=== PATIENT | female | born 1945 | race Caucasian/White ===

== ENCOUNTER 2019-10-23 19:34 | Emergency (ER) | payer MEDICARE, MEDICAID, SELFPAY ==
[2019-10-23 19:39] VITALS: BP 109/74; PULSE 88; RESP 18; TEMP 36.3; O2SAT 94
--- NOTE | 2019-10-23 19:52 | W.ED.GENAD ---
Discharge Plan Disposition Patient Disposition: [facility] Condition: Fair Discharge Details Chief Complaint: GenMedical Clinical Impression: UTI (urinary tract infection), AMS (altered mental status) Primary Care Provider: Diana,Local ED Provider: Candida Irwin [place] Meds and New Rx's Prescriptions: No Action quetiapine 25 mg Tablet 25 mg PO HS RF: 0 famotidine 20 mg Tablet 20 mg PO BID RF: 0 lorazepam 0.5 mg Tablet 0.5 mg PO PRN PRNRF: 0 levetiracetam 750 mg Tablet 750 mg PO BID RF: 0 lisinopril 40 mg Tablet 40 mg PO DAILY RF: 0 Discharge Data Discharge Date/Time-TO BE ENTERED AT DEPARTURE: 10/24/19 00:25 Medical Decision Making Patient is a pleasant 72 year old female, brought in by her daughter, with concern for difficulty with ambulation and poor cognition. Daughter reports that the patient had been residing in [place]. Is from the [facility] of [place], family currently resides here. However, patient moved to [place] approximately 20 years ago. 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 Deficit after intervention was generalized weakness, difficulty with ambulation and cognitive decline. Daughter reports that her mother has been very confused since the ruptured aneurysm. [facility] where he was working with physical therapy, speech therapy was having cognitive therapy. She reports however that over the past week her mothers participation in his activities has began to decline. For this reason, she reports the penitentiary dismissed the patient and advised that she was no longer eligible to stay at their facility. They are unable to place the patient in a penitentiary and the daughter felt that it would be more appropriate for her today back to [place] with her family. The daughter then subsequently drove to [place], picked her up and brought her back. She reports they arrived around 2 AM today. Patient has not been able to ambulate, has been in a wheelchair. She had to have a neighbors picket [employer] the patient in her wheelchair and care here into the house. 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 On exam, patient is pleasantly confused. Lungs are clear, normal cardiac exam. She is moving all extremities with purpose, strength is equal bilaterally in the lower and upper extremities. Normal cranial nerve findings. Patient is having difficulty following instructions but this seems to be a more cognitive delay and again, the daughter reports that this is been chronic since the ruptured brain aneurysm. Abdomen is benign. No lower extremity edema. History is limited secondary to patient's current cognitive state. Vital signs are without significant abnormality. New concern for possible UTI. Will obtain labs and urinalysis. Will hold off on IV at this time as I am concerned that she may remove this. Our CT machine is down at this time. However, I do not find any new or acute, sudden onset symptoms and have very low suspicion for rebleed at this time. Do not feel that emergent imaging is warranted in this patient. Labs reviewed. Patient's nitrate positive, has elevated WBC, packed bacteria and few epithelial cells. I am concerned for possible urosepsis. We will begin IV, hydration and IV antibiotics. Labs reviewed. No leukocytosis. Patient slightly anemic with a hemoglobin of 11.4. Potassium is 3.0, will replenish this orally. Creatinine is elevated 1.3 but I do not have any comparisons. GFR is 48. AST is slightly elevated at 53. TSH within normal limits. Nursing staff attempted to ambulate the patient and was unable to do so even with a two-person assist. I do not feel that this patient is safe to be discharged and feel that further antibiotics, physical therapy is appropriate. Reached out to [facility], [facility], [facility], [facility]. All have refused as of now. Many are concerned that there is no CT. We did discuss that there is no CT available at this time. I have very minimal concern for intracranial etiology at this time. Consulted with the ED at [facility]. Spoke with Dr Clay who accepts patient to their ED for CT and likely subsequent admission. Discussed plan with the patients daughter who is in agreement. Patient transferred via EMS in stable condition to [facility]. HPI General Mode of arrival: wheelchair. Date/Time Provider Initiated Documentation: 10/23/19 19:52. Limitations to Documentation: altered mental status. Information obtained by: family and RN notes reviewed. History of Present Illness 73 year old F presents to the emergency department with the chief complaint of increased confusion, difficulty with ambulation, described as moderate, Patient started experiencing this month(s) and it has been constant (worsening over recent days/weeks). No relieving factors improve symptom(s), No exacerbating factors reported . Patient notes confusion (has been baseline since aneurysm with increase recently) and weakness; denies cough, headaches, malaise, nausea/vomiting, rash, shortness of breath and syncope. Patient did receive the following treatments prior to arrival, none Related Data Home Medications Medication Instructions Recorded Confirmed famotidine 20 mg PO BID 10/23/19 10/23/19 levetiracetam 750 mg PO BID 10/23/19 10/23/19 lisinopril 40 mg PO DAILY 10/23/19 10/23/19 lorazepam 0.5 mg PO PRN PRN 10/23/19 10/23/19 quetiapine 25 mg PO HS 10/23/19 10/23/19 Allergies Allergy/AdvReac Type Severity Reaction Status Date / Time propranolol [From Inderal LA] Allergy Unverified 10/23/19 19:51 General Stated Complaint: GenMedical HADLEY: 3 Review of Systems Unobtainable due to mental condition [facility] Medical History (Updated 10/23/19 @ 23:59 by MOHAN Xavier) Anxiety (Chronic) Cognitive communication deficit (Acute) COPD (chronic obstructive pulmonary disease) (Chronic) Hypertensive heart disease without heart failure (Acute) 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 (Acute) Seizure (Acute) Social History Smoking/Tobacco Use Status: Former Tobacco Use Alcohol Intake: former Drug use: Never Additional Social history: pt has confusion and has just been moved via car from [place] Exam Const General: comfortable, no acute distress, well developed and well groomed Nutritional Appearance: overweight Orientation: alert, awake, not oriented x3 and confused Limitations: altered mental status [facility] Head: normal to inspection, no palpable skull fracture, normocephalic and atraumatic Ears: hearing grossly normal bilaterally Face and sinus: normal facial exam Mouth: oral mucosae normal Throat: posterior oropharynx normal Eyes General: appearance normal, both eyes and all related structures Neck Neck: normal visual inspection, full ROM, no lymphadenopathy and no meningeal signs Resp Effort & Inspection: normal respiratory effort and able to speak in complete sentences Auscultation: clear to auscultation bilaterally, no rales, no rhonchi and no wheezes Cardio Rate: regular rate Rhythm: regular rhythm Heart Sounds: S1 normal and S2 normal GI Inspection: normal to inspection and obesity Palpation: soft, no hepatosplenomegaly, not firm, no guarding, not rigid and nontender Percussion: normal to percussion Auscultation: normal bowel sounds Skin General skin exam: no rashes or lesions noted Lesions: no lesions Rashes: no rashes Trauma: no lacerations or abrasions Wounds: no wounds Neuro General: alert, awake, not oriented x3, oriented Patient Orientation: Person, gait abnormal (Patient is unable to ambulate), tone normal, moves all extremities, no meningeal signs, no focal motor deficits and CN's II-XI intact bilaterally Cranial Nerves: PERRL, accommodation normal, EOM intact bilaterally, no nystagmus, facial strength normal, tongue midline, gag reflex normal, hearing normal, able to rotate head bilaterally and able to elevate shoulders bilaterally Cognition: abnormal cognition Speech: speech normal (patient is confused, slurred speech ) Gait: gait abnormal Motor: muscle tone normal throughout, strength 5/5 throughout, no movement abnormalities noted and no fasciculations Extrem General: normal to inspection, full ROM, normal capillary refill, no pedal edema, no calf tenderness and no calf tenderness bilaterally Right upper extremity: normal to inspection Left upper extremity: normal to inspection Right lower extremity: normal to inspection Left lower extremity: normal to inspection Psych Appearance: grossly normal and well kempt Speech and Movement: slurred speech Course Vital Signs Vital signs: Vital Signs Temperature 36.3 C L 10/23/19 19:39 Pulse 88 10/23/19 19:39 Respiratory Rate 18 10/23/19 19:39 Blood Pressure 109/74 10/23/19 19:39 Pulse Oximetry 94 L 10/23/19 19:39 Temperature 36.3 C L 10/23/19 19:39 Temperature Source Temporal Artery Scan 10/23/19 19:39 Pulse 88 10/23/19 19:39 Respiratory Rate 18 10/23/19 19:39 Respiratory Effort 10/23/19 19:46 Blood Pressure 109/74 10/23/19 19:39 Blood Pressure Position Supine 10/23/19 19:39 Pulse Oximetry 94 L 10/23/19 19:39 Oxygen Delivery Method Room Air 10/23/19 19:39 Oxygen Flow Rate 0 10/23/19 19:39
[2019-10-23 20:38] LABS: HCT 35.2 % (36.0-46.0); HGB 11.4 g/dL (12.0-15.5); Mean Corp. HGB Concentration 32.4 g/dL (32.0-36.0); Mean Corpuscular Hemoglobin 30.5 pg (27.0-33.0); Mean Corpuscular Volume 94.1 fL (80-95); Mean Platelet Volume 10.7 fL (8.0-11.0); Platelet Count 350 x1000/uL (130-400); RBC 3.74 m/cumm (4.00-5.20); RBC Distribution Width 13.7 % (11.7-14.6); White Blood Cell Count 8.67 k/cumm (4.4-10.8)
[2019-10-23 20:49] LABS: Bilirubin Small (Negative); Blood Trace-intact (Negative); Clarity Cloudy (Clear); Glucose Negative (Negative); Ketones Trace mg/dL (Negative); Leukocyte Esterase Negative (Negative); Nitrite Positive (Negative); Specific Gravity >= 1.030 (1.005-1.025); Urobilinogen 0.2 EU/dL (Up TO 0.2); pH 5.5 (5-8)
[2019-10-23 20:57] LABS: Bacteria Packed HPF (Negative); C & S Indicated? Yes; Crystals Negative HPF (Negative); Epithelial Cells Few HPF (Negative); Mucus Negative (Negative); RBC 0-2 HPF (0-2); WBC 20-50 HPF (0-5)
[2019-10-23 21:02] LABS: Absolute Eosinophil Count 0.26 k/cumm (0.0-0.7); Absolute Lymphocyte Count 2.95 k/cumm (1.2-3.4); Absolute Monocyte Count 0.61 k/cumm (0.11-0.7); Absolute Neutrophil Count 4.77 k/cumm (1.2-6.7)
[2019-10-23 21:03] LABS: ALT 42 U/L (14-59); AST 53 U/L (15-37); Absolute Basophil Count 0.09 k/cumm (0.0-0.2); Albumin 3.4 g/dL (3.4-5.0); Alkaline Phosphatase 91 U/L (46-116); Anion Gap 10.9 mmol/L (3-11); BUN 18 mg/dL (7-18); Bilirubin, Total 0.4 mg/dL (0.2-1.0); CO2 27.1 mmol/L (21.0-32.0); Calcium 8.6 mg/dL (8.5-10.1); Chloride 105 mmol/L (98-107); Diff Comment Manual Differential; Estimated GFR 40.49 (mL/min/1.73m2); Glucose 102 mg/dL (74-106); Hypochromasia 1+; Sodium 143 mmol/L (136-145); TSH (W/Ref FT4) 2.52 uIU/mL (0.36-3.74); Total Protein 6.9 g/dL (6.4-8.2)
[2019-10-23] MEDS: Normal Saline 1,000 ML 250 ML IV (21:30)
[2019-10-23] MEDS: cefTRIAXone 1 GM/50 ML BAG IVPB (21:45)
[2019-10-23 21:59] LABS: Lactate 1.1 mmol/L (0.6-1.4)
[2019-10-23 22:11] VITALS: PULSE 82; TEMP 36.4; O2SAT 92
--- NOTE | 2019-10-23 22:16 | NUR.NOTE ---
pt is restless adjusting her covers . she has attempted to remove her IV Nursing Note:
--- NOTE | 2019-10-23 22:43 | NUR.NOTE ---
pt was given her own evening meds from her blister pack Nursing Note:
[2019-10-23] MEDS: Potassium Chloride 20 MEQ TABCR 40 MEQ PO (22:50)
[2019-10-23] MEDS: Ondansetron 4 MG/2 ML VIAL IVP (22:51)
--- NOTE | 2019-10-23 23:41 | NUR.NOTE ---
pt has continued to be restless in her bed. she was assisted to the commode with assist of two. she voided 80 cc. returned to bed .Nursing Note:
[2019-10-24 00:03] VITALS: BP 115/67; PULSE 100; RESP 20; TEMP 36.5; O2SAT 95
--- NOTE | 2019-10-27 11:00 | NUR.NOTE ---
Nursing Note: Urine culture result printed this am. After speaking with patient's daughter, her last name is actually Sobeida Glynn that we have in the computer. Daughter states she will address this. Patient is no longer at [facility], but at [facility]. The result was faxed to that facility and Os[facility] is aware. Tracey Lassiter
== END 2019-10-24 00:25 | disposition short-term general hospital (02) ==
PROVIDERS: Emergency Provider Physician Assistant
DX: R41.82 Altered mental status, unspecified (principal); N39.0 Urinary tract infection, site not specified; B96.1 Klebsiella pneumoniae [K. pneumoniae] as the cause of diseases classified elsewhere; I60.4 Nontraumatic subarachnoid hemorrhage from basilar artery; E11.9 Type 2 diabetes mellitus without complications; I10 Essential (primary) hypertension; J44.9 Chronic obstructive pulmonary disease, unspecified; Z87.891 Personal history of nicotine dependence; R79.9 Abnormal finding of blood chemistry, unspecified
CPT/HCPCS: 36415; 80053; 87040; 87077; 96365; 96375; 99285; 81003; 81015; 83605; 84443; 85025; 87086; 87186; J0696; J2405

== ENCOUNTER 2019-12-02 09:36 | Outpatient (REF) | payer MEDICARE, SELFPAY ==
[2019-12-02 11:43] LABS: ALT 17 U/L (14-59); AST 25 U/L (15-37); Albumin 2.4 g/dL (3.4-5.0); Alkaline Phosphatase 114 U/L (46-116); Anion Gap 8.2 mmol/L (3-11); BUN 20 mg/dL (7-18); Bilirubin, Total 0.4 mg/dL (0.2-1.0); CO2 30.8 mmol/L (21.0-32.0); CREATININE 0.78 mg/dL (0.55-1.02); Calcium 8.4 mg/dL (8.5-10.1); Chloride 103 mmol/L (98-107); Glucose 86 mg/dL (74-106); Potassium 3.7 mmol/L (3.5-5.1); Sodium 142 mmol/L (136-145); Total Protein 5.8 g/dL (6.4-8.2); Vitamin B12 1138 pg/mL (193-986)
== END 2019-12-02 09:56 ==
LOC: LBN 09:36
PROVIDERS: PCP Family Medicine; Visit Provider Family Medicine
DX: K14.0 Glossitis (principal)
CPT/HCPCS: 80053; 82607; 82746

== ENCOUNTER 2020-01-12 07:59 | Emergency (ER) | payer MEDICARE, MEDICAID, SELFPAY ==
[2020-01-12] VITALS (35 sets, daily range): BP systolic 120–156; BP diastolic 59–139; PULSE 60–88; RESP 6–24; TEMP 37.1; O2SAT 97–99
--- NOTE | 2020-01-12 08:21 | W.ED.GENAD ---
Discharge Plan Disposition Patient Disposition: SNF (LEVEL 1) [facility] Condition: Good Discharge Details Chief Complaint: GenMedical Clinical Impression: Nausea & vomiting, Hypokalemia Primary Care Provider: Leonela Waddell ED Provider: Candida Irwin [place] Meds and New Rx's Prescriptions: New potassium chloride 20 mEq tablet extended release 20 meq PO DAILY Qty: 7 RF: 0 Continued acetaminophen [Tylenol] 325 mg tablet 325 mg PO ONCE PRNRF: 0 quetiapine 25 mg Tablet 25 mg PO HS RF: 0 famotidine 20 mg Tablet 20 mg PO BID RF: 0 lorazepam 0.5 mg Tablet 0.5 mg PO PRN PRNRF: 0 levetiracetam 750 mg Tablet 750 mg PO BID RF: 0 lisinopril 40 mg Tablet 40 mg PO DAILY RF: 0 acetaminophen [Tylenol Arthritis Pain] 650 mg Tablet Extended Release 650 mg PO DAILY RF: 0 ferrous sulfate [iron] 325 mg (65 mg iron) Tablet 325 mg PO DAILY RF: 0 valproate sodium 500 mg/5 mL (100 mg/mL) Solution 250 mg PO DAILY RF: 0 ibuprofen 200 mg Tablet 200 mg PO Q6H PRNRF: 0 folic acid 1 mg Tablet 1 mg PO DAILY RF: 0 mirtazapine 15 mg Tablet 15 mg PO QHS RF: 0 albuterol sulfate [Ventolin HFA] 90 mcg/actuation Hfa Aerosol Inhaler 90 mcg INHALATION PRN PRNRF: 0 duloxetine [Cymbalta] 60 mg Capsule,Delayed Release(Dr/Ec) 30 mg PO DAILY RF: 0 Discharge Instructions Instructions: Hypokalemia (ED), Acute Nausea and Vomiting (ED) Additional Instructions: Continue to encourage hydration. Potassium was low today. She was given 20 IV and 10 p.o. Please give another dosing this evening, prescription has been written. She will need to have this reassessed by primary care. Urine is concerning for possible urinary tract infection. However, with the recent catheter placement this could also be contamination and we will wait for the culture results before beginning antibiotics. Around the area of catheter there is a prolapse. Patient may benefit from pessary. She should have this reassessed by primary care and reconsideration regarding the catheter should be discussed. Patient develops new or worsening symptoms please seek care urgently once again. Referrals: Leonela Waddell [Primary Care Provider] - Discharge Data Discharge Date/Time-TO BE ENTERED AT DEPARTURE: 01/12/20 13:20 Medical Decision Making <MOHAN Xavier - Last Filed: 01/13/20 15:29> Patient is a pleasantly confused 74-year-old female presenting today with chief complaint of constipation. Patient sent over by the [facility] with report of constipation x2 days. They state that she has had diminished p.o. intake over the past week that is been progressively getting worse daily. Patient is endorsing abdominal pain. No fevers or chills. They state most vomiting x1 yesterday. Past medical history significant for hypertension, cognitive communication deficit, COPD, nontraumatic subarachnoid hemorrhage, seizure, anxiety, type 2 diabetes. Patient's baseline confusion does make it difficult to obtain history. Her story oscillates rapidly while here. Plan to call the [facility] for more accurate information. She did have On exam, the patient appears nontoxic. She is ANO x1. She is vital signs within normal limits. Normal cardiac and respiratory exam. Abdominal exam is benign. She does intermittently endorse abdominal pain but does not have any reproducible pain on exam. No CVA tenderness. Normal rectal exam was soft stool noted. A small amount of blood in her diaper. However, this does not appear to be coming from the rectum and had a guaiac negative stool. However, around the catheter the patient does have a small prolapse. She has had multiple children vaginally. Likely she would benefit from pessary. This small area is able to be reduced. She has pink viable tissue. This is nontender for the patient. I do not see any evidence of vaginal bleeding. Contacted the [facility]. They advised that the patient vomited x 1 yesterday. She reports poor intake over the past several days that has progressively been worsening. Had small BM yesterday, prior to that last BM was on 12/29/19 but patient is poor historian and if there were BM between is unknp[place]. Nursing staff states that a catheter was placed last night for more close monitoring of I&O status. Nursing staff states that this is been progressive decline. Provider at the [facility] was concerned the patient may have an obstruction due to decreased stooling and vomiting x1 yesterday. Contacted by the lab. Patients potassium 2.9. Will replenish IV and PO. Labs reviewed. No leukocytosis. BUN 21, creatinine and GFR normal. UA significant for blood, small leukocytes esterdase, moderate bacteria, few epithelial cells. FINDINGS: Mediastinum: Small hiatal hernia Liver: Normal. No mass. Gallbladder and bile ducts: Distended gallbladder Pancreas: Normal. No ductal dilation. Spleen: Normal. No splenomegaly. Adrenals: Normal. No mass. Kidneys and ureters: Subcentimeter low attenuation areas in both kidneys are too small for characterization. Duplicated right renal collecting system No renal calculus. No ureteral calculus. Stomach and bowel: Unremarkable. No obstruction. No mucosal thickening. Appendix: Normal appendix Intraperitoneal space: Unremarkable. No free air. No significant fluid collection. Vasculature: Unremarkable. No abdominal aortic aneurysm. Lymph nodes: Unremarkable. No enlarged lymph nodes. Bladder: Gonzales catheter in the bladder Reproductive: Unremarkable as visualized. Bones/joints: Compression fracture of unknown age L1 and T10 Soft tissues: Unremarkable. IMPRESSION: No acute process discussed these findings with the patient although is unclear how much she will remember from this. She tolerated IV and p.o. potassium. She will be advised to continue with the p.o. potassium once home. She has not had any nausea, vomiting, diarrhea since being here. Exam on CT as well as physical exam does not suggest severe constipation. I feel that stool softening regimen would be appropriate and can be managed at her place of residence at the [facility]. At this point, the findings on the UA could be contamination from the catheter being placed yesterday. Rather than place her immediately on antibiotics, I would prefer to hold off and wait for culture and sensitivity prior to getting medications. We will contact them with any positive results. Advise follow-up with primary care and reevaluation of the patient's prolapse. She was given return precautions. Contact the [facility] to relay plan. All of their questions and concerns were addressed patient and the [facility] are in agreement this plan. <Ronak Fisher MD - Last Filed: 01/12/20 09:50> Patient seen, examined, discussed, with Ms. Irwin. I agree with her assessment and plan of care. HPI <MOHAN Xavier - Last Filed: 01/13/20 15:29> General Mode of arrival: EMS. Date/Time Provider Initiated Documentation: 01/12/20 08:19. Limitations to Documentation: altered mental status. Information obtained by: patient, RN/MD (contacted by RN at [facility] prior to arrival) and EMS. HPI Narrative: Patient is a 74-year-old pleasantly confused female came in today with chief complaint of constipation. Patient is quite confused and is a unreliable historian. Per detention staff, patient has been constipated for the past several days. She reports small bowel movement yesterday but prior to that, no bowel movement since 12/29/2019. However, there is a questioning if this may not have been recorded and are unclear if this is true constipation. Provider at the [facility] is concern for possible obstruction and recommended transfer to our facility for further evaluation. They report that over recent days, she has had decreased p.o. intake. They are concerned some of this may be associated with depression and not being able to see her family associate with pandemic. Related Data Home Medications Medication Instructions Recorded Confirmed famotidine 20 mg PO BID 10/23/19 01/12/20 levetiracetam 750 mg PO BID 10/23/19 10/23/19 lisinopril 40 mg PO DAILY 10/23/19 01/12/20 lorazepam 0.5 mg PO PRN PRN 10/23/19 10/23/19 quetiapine 25 mg PO HS 10/23/19 10/23/19 acetaminophen 325 mg tablet 325 mg PO ONCE PRN 01/02/20 acetaminophen [Tylenol Arthritis 650 mg PO DAILY 01/12/20 01/12/20 Pain] albuterol sulfate [Ventolin HFA] 90 mcg INHALATION PRN PRN 01/12/20 01/12/20 duloxetine [Cymbalta] 30 mg PO DAILY 01/12/20 01/12/20 ferrous sulfate [iron] 325 mg PO DAILY 01/12/20 01/12/20 folic acid 1 mg PO DAILY 01/12/20 01/12/20 ibuprofen 200 mg PO Q6H PRN 01/12/20 01/12/20 mirtazapine 15 mg PO QHS 01/12/20 01/12/20 potassium chloride 20 meq PO DAILY #7 tab 01/12/20 valproate sodium 250 mg PO DAILY 01/12/20 01/12/20 Previous Rx's Medication Instructions Recorded potassium chloride 20 meq PO DAILY #7 tab 01/12/20 Allergies Allergy/AdvReac Type Severity Reaction Status Date / Time propranolol [From Inderal LA] Allergy Unverified 11/01/19 14:16 General Stated Complaint: GenMedical HADLEY: 3 Review of Systems <MOHAN Xavier - Last Filed: 01/13/20 15:29> Unobtainable due to mental status PFSH <MOHAN Xavier - Last Filed: 01/13/20 15:29> Medical History (Updated 01/12/20 @ 12:34 by MOHAN Xavier) Aneurysm (Acute) Anxiety (Chronic) Cognitive communication deficit (Acute) COPD (chronic obstructive pulmonary disease) (Chronic) Hypertensive heart disease without heart failure (Acute) 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 (Acute) Seizure (Acute) Surgical History (Updated 01/02/20 @ 08:42 by Shelby Mares) H/O neck surgery (Acute) History of ankle surgery (Acute) Social History (System 11/01/19 @ 14:16 by Rizwana Marquez) Smoking/Tobacco Use Status: Former Tobacco Use Alcohol Intake: former Drug use: Never Additional Social history: pt has confusion and has just been moved via car from [place] Exam <MOHAN Xavier - Last Filed: 01/13/20 15:29> Const General: cooperative, comfortable, no acute distress, well developed and ill appearing chronically Nutritional Appearance: average body habitus and well nourished Orientation: alert, awake and confused HENMT Head: normal to inspection Mouth: mucous membranes dry (appears dehydrated) Resp Effort & Inspection: normal respiratory effort, able to speak in complete sentences and no respiratory distress Auscultation: clear to auscultation bilaterally, no rales, no rhonchi and no wheezes Cardio Rate: regular rate Rhythm: regular rhythm Heart Sounds: S1 normal and S2 normal GI Inspection: normal to inspection, no edema, non-distended and no incisions Palpation: soft, no hepatosplenomegaly, not firm, no guarding, no hernias, no masses, not rigid and nontender Percussion: normal to percussion Auscultation: absent bowel sounds Rectal Exam - female: visual inspection normal and heme negative stool Back/Spine/Pelvis Back: no CVA tenderness Skin General skin exam: no rashes or lesions noted Trauma: no lacerations or abrasions Neuro General: patient alert, patient awake and oriented Patient Orientation: Person and Confused Cognition: abnormal cognition Speech: speech normal Gait: normal gait (needs assistance, sounds to be baseline for the patient) Psych Appearance: grossly normal and well kempt Mental Status: mental status grossly normal Speech and Movement: speech and movement normal Course <MOHAN Xavier - Last Filed: 01/13/20 15:29> Vital Signs Vital signs: Vital Signs Temperature 37.1 C 01/12/20 08:14 Pulse 88 01/12/20 08:14 Respiratory Rate 18 01/12/20 08:14 Blood Pressure 132/84 01/12/20 08:14 Pulse Oximetry 99 01/12/20 08:14 Temperature 37.1 C 01/12/20 08:14 Temperature Source Oral 01/12/20 08:14 Pulse 88 01/12/20 08:14 Respiratory Rate 18 01/12/20 08:14 Blood Pressure 132/84 01/12/20 08:14 Blood Pressure Position Supine 01/12/20 08:14 Pulse Oximetry 99 01/12/20 08:14 Oxygen Delivery Method Room Air 01/12/20 08:14 Oxygen Flow Rate 0 01/12/20 08:14
[2020-01-12 09:25] LABS: Abs Immature Grans 0.03 k/cumm (0.0-0.09); Absolute Basophil Count 0.03 k/cumm (0.0-0.2); Absolute Eosinophil Count 0.04 k/cumm (0.0-0.7); Absolute Lymphocyte Count 1.82 k/cumm (1.2-3.4); Absolute Monocyte Count 0.81 k/cumm (0.11-0.7); Absolute Neutrophil Count 5.08 k/cumm (1.2-6.7); Basophils % 0.4; Eosinophils % 0.5; HCT 36.7 % (36.0-46.0); Immature Grans % 0.4 %; Lymphocytes % 23.3; Mean Corp. HGB Concentration 32.7 g/dL (32.0-36.0); Mean Corpuscular Hemoglobin 29.7 pg (27.0-33.0); Mean Corpuscular Volume 90.8 fL (80-95); Mean Platelet Volume 10.6 fL (8.0-11.0); Monocytes % 10.4; Platelet Count 346 x1000/uL (130-400); RBC 4.04 m/cumm (4.00-5.20); RBC Distribution Width 15.2 % (11.7-14.6); White Blood Cell Count 7.81 k/cumm (4.4-10.8)
[2020-01-12] MEDS: Normal Saline 1,000 ML 500 ML IV (09:43)
[2020-01-12 09:47] LABS: ALT 16 U/L (14-59); AST 22 U/L (15-37); Albumin 3.1 g/dL (3.4-5.0); Alkaline Phosphatase 79 U/L (46-116); Anion Gap 7.1 mmol/L (3-11); BUN 21 mg/dL (7-18); Bilirubin, Total 0.6 mg/dL (0.2-1.0); CO2 32.9 mmol/L (21.0-32.0); CREATININE 0.65 mg/dL (0.55-1.02); Calcium 9.5 mg/dL (8.5-10.1); Chloride 98 mmol/L (98-107); Glucose 107 mg/dL (74-106); Magnesium 1.6 mg/dL (1.8-2.4); Sodium 138 mmol/L (136-145); Total Protein 7.6 g/dL (6.4-8.2)
[2020-01-12 09:48] LABS: Potassium 2.9 mmol/L (3.5-5.1); Troponin I < 0.05 ng/Ml (<0.06)
[2020-01-12] MEDS: POTASSIUM CHLORIDE 20 MEQ/100 ML BAG 50 MEQ IVPB (10:07)
--- NOTE | 2020-01-12 10:15 | DI.CT_ITS ---
EXAM: CT ABDOMEN PELVIS W CLINICAL HISTORY: constipation. TECHNIQUE: Imaging Protocol: Axial computed tomography images with coronal and sagittal reformatted images were created and reviewed CONTRAST MATERIAL: Intravenous: Omnipaque 350 Contrast volume:100 cc Oral: yes / COMPARISON: No exams were available for comparison FINDINGS: ABDOMEN: Lung Bases: Normal where visualized. Liver: Mild fatty infiltration. No measurable mass. Gallbladder and biliary tract: No radiodense calculus or dilation. Pancreas: Normal density, no abnormal calcifications or inflammatory process. Spleen: Normal. Kidneys: Normal size, duplex right collecting system. No radiodense stones or obstructive uropathy. No masses seen. Adrenal glands: No masses seen. Abdominal Aorta: Abdominal portion non-dilated. Heavily calcified. PELVIS: Bladder: Decompressed by Gonzales catheter. Bowel: No obstruction or bowel wall thickening. There is a moderate quantity of stool. Peritoneal cavity: No ascites, collection or mesenteric inflammatory response. Bones: There are mild compression fractures of the superior endplates T10 and L1. Facet degenerative changes are seen greatest at the lower lumbar levels. There is L5 spondylolysis but no evidence of spondylolisthesis. Reproductive organs: Within normal limits. Lymph nodes: Unremarkable. Impression: No acute abnormality. RADIATION DOSE DELIVERED: 749.94mGy.cm Total DLP DATA REPOSITORY: All CT scans at this facility are submitted to the National Radiology Data Registry (NRDR) Dose Index Registry (DIR) with the [employer] (ACR). RADIATION OPTIMIZATION: All CT scans at this facility use at least one of these dose optimization te chniques: automated exposure control; mA and/or kV adjustment per patient size (includes targeted exa ms where dose is matched to clinical indication); or iterative reconstruction.
[2020-01-12 10:19] LABS: Bilirubin Large (Negative); Blood Large (Negative); Clarity Sl Cloudy (Clear); Glucose Negative (Negative); Ketones 40 mg/dL (Negative); Leukocyte Esterase Small (Negative); Nitrite Negative (Negative); Specific Gravity 1.025 (1.005-1.025); pH 6.5 (5-8)
[2020-01-12] MEDS: Normal Saline - Diluent 50 ML VIAL IV (10:24)
[2020-01-12] MEDS: Omnipaque 350 MG/ML 100 ML BTL IJ (10:24)
[2020-01-12 10:35] LABS: Bacteria Moderate HPF (Negative); Epithelial Cells Few HPF (Negative); RBC >50 HPF (0-2)
[2020-01-12 10:36] LABS: C & S Indicated? Yes; Casts Negative LPF (Negative); Crystals Negative HPF (Negative); Mucus Trace (Negative)
--- NOTE | 2020-01-12 10:58 | DI.VRAD_ITS ---
PROCEDURE INFORMATION: Exam: CT Abdomen And Pelvis With Contrast Exam date and time: 01/12/2020 10:18 AM Age: 74 years old Clinical indication: Constipation TECHNIQUE: Imaging protocol: Computed tomography of the abdomen and pelvis with intravenous contrast. COMPARISON: No relevant prior studies available. FINDINGS: Mediastinum: Small hiatal hernia Liver: Normal. No mass. Gallbladder and bile ducts: Distended gallbladder Pancreas: Normal. No ductal dilation. Spleen: Normal. No splenomegaly. Adrenals: Normal. No mass. Kidneys and ureters: Subcentimeter low attenuation areas in both kidneys are too small for characterization. Duplicated right renal collecting system No renal calculus. No ureteral calculus. Stomach and bowel: Unremarkable. No obstruction. No mucosal thickening. Appendix: Normal appendix Intraperitoneal space: Unremarkable. No free air. No significant fluid collection. Vasculature: Unremarkable. No abdominal aortic aneurysm. Lymph nodes: Unremarkable. No enlarged lymph nodes. Bladder: Gonzales catheter in the bladder Reproductive: Unremarkable as visualized. Bones/joints: Compression fracture of unknown age L1 and T10 Soft tissues: Unremarkable. IMPRESSION: No acute process Dictated and Authenticated by: Nell Garcia MD. Ordering:ELYSIA Tirado MD
[2020-01-12] MEDS: Potassium Chloride 10 MEQ TABCR PO (11:58)
== END 2020-01-12 13:20 | disposition skilled nursing facility (03) ==
PROVIDERS: Emergency Provider Physician Assistant; PCP Family Medicine
DX: E87.6 Hypokalemia (principal); R11.2 Nausea with vomiting, unspecified; E11.9 Type 2 diabetes mellitus without complications; J44.9 Chronic obstructive pulmonary disease, unspecified; Z87.891 Personal history of nicotine dependence
CPT/HCPCS: 36415; 80053; 96361; 96365; 96366; 99285; 74177; 81003; 81015; 83735; 84484; 85025; 87086; J3480; J3490

== ENCOUNTER 2020-01-14 15:59 | Emergency (ER) | payer MEDICARE, MEDICAID, SELFPAY ==
[2020-01-14] VITALS (24 sets, daily range): BP systolic 109–171; BP diastolic 56–88; PULSE 80–104; RESP 16–18; TEMP 36.6; O2SAT 93–98
--- NOTE | 2020-01-14 16:00 | DI.US_ITS ---
EXAM: US ABDOMEN LIMITED CLINICAL HISTORY: upper abd pain, vomiting, r/o cholecystitis TECHNIQUE: Ultrasound performed using standard protocol. The right upper quadrant was scanned. COMPARISON: CT CT ABDOMEN PELVIS W from 01/12/2020 FINDINGS: Mobile sludge is noted within the gallbladder. No stones are seen. There is no gallbladder wall th ickening, pericholecystic fluid or sonographic Lozano sign. The common bile duct measures 7 millimet ers. No common duct stone is seen. The aorta is normal in diameter. The liver shows increased ech ogenicity consistent with mild fatty infiltration. The right kidney is unremarkable. The visualized portions of the pancreas appear normal. There is no right upper quadrant fluid. IMPRESSION: Gallbladder sludge. No findings cysts suggest acute cholecystitis. [id number] hepatic steat osis. DATA REPOSITORY:
--- NOTE | 2020-01-14 16:13 | W.ED.GENAD ---
Discharge Plan Disposition Patient Disposition: HOME Condition: Stable Discharge Details Chief Complaint: GenMedical Clinical Impression: Anorexia, Nausea and vomiting Primary Care Provider: Leonela Waddell ED Provider: Ivelisse Mendez Home Meds and New Rx's Prescriptions: New ondansetron 4 mg tablet,disintegrating 4 mg PO TID PRN (Reason: nausea and vomiting) Qty: 6 RF: 0 Continued famotidine 20 mg Tablet 20 mg PO BID RF: 0 lisinopril 40 mg Tablet 40 mg PO DAILY RF: 0 acetaminophen [Tylenol Arthritis Pain] 650 mg Tablet Extended Release 650 mg PO TID RF: 0 ferrous sulfate [iron] 325 mg (65 mg iron) Tablet 325 mg PO BID RF: 0 valproate sodium 500 mg/5 mL (100 mg/mL) Solution 250 mg PO TID RF: 0 ibuprofen 200 mg Tablet 200 mg PO Q6H PRNRF: 0 folic acid 1 mg Tablet 1 mg PO DAILY RF: 0 mirtazapine 15 mg Tablet 15 mg PO QHS RF: 0 albuterol sulfate [Ventolin HFA] 90 mcg/actuation Hfa Aerosol Inhaler 90 mcg INHALATION PRN PRNRF: 0 duloxetine [Cymbalta] 60 mg Capsule,Delayed Release(Dr/Ec) 30 mg PO BID RF: 0 potassium chloride 20 mEq tablet extended release 20 meq PO DAILY Qty: 7 RF: 0 beclomethasone dipropionate 80 mcg/actuation Hfa Aerosol Breath Activated 1 inh INHALATION DAILY RF: 0 ondansetron HCl [Zofran] 4 mg Tablet 4 mg PO Q8H PRNRF: 0 docusate sodium 100 mg Capsule 100 mg PO BID RF: 0 polyethylene glycol 3350 [Miralax] 17 gram/dose Powder 17 g PO DAILY RF: 0 senna 8.6 mg Capsule 8.6 mg PO BID RF: 0 Biofreeze (menthol) 4 % Gel 1 applic TOPICAL QD-BID PRNRF: 0 Salonpas 3.1-10-6 % Adhesive Patch,Medicated 1 patch TOPICAL DAILY RF: 0 Health Shake 1 unit PO BID RF: 0 Discharge Instructions Instructions: Acute Nausea and Vomiting (ED) Additional Instructions: Limit ibuprofen intake as this may be contributing to chronic nausea and decreased appetite. Follow-up with general surgery for further evaluation of your chronic nausea and decreased appetite and for consideration of possible upper endoscopy to rule out gastritis or ulcers. Also consider possibility of depressed mood which can contribute to decreased appetite and whether a change in antidepressant medication can help. Follow-up with your primary care doctor in 2 days. Return to the emergency department with any worsening or new concerning symptoms. Referrals: Danna Elaine MD [ [facility] STAFF PHYSICIAN] - Discharge Data Discharge Date/Time-TO BE ENTERED AT DEPARTURE: 01/14/20 20:20 Discharge Physician: Ivelisse Mendez Medical Decision Making 6930 -- 74-year-old female with a history of dementia, anxiety, COPD, hypertension presents from the [facility] for nausea, vomiting, diarrhea and decreased p.o. intake over the last several weeks. Seen here over the weekend for similar symptoms and had a negative CT scan and noted to have a potassium of 2.9 and advised to increase potassium intake and was sent back to the [facility]. Dr. Esparza called the ED today stating that patient likely needs to be admitted for IV fluids and possible gallbladder ultrasound. Patient appears at mental status baseline, she is A and O x1. Heart rate 104. She appears nontoxic and in no acute distress. Her abdomen is soft and she denies any abdominal pain but she is tender in the upper quadrants. Will place an IV, screening labs, urinalysis, IV fluids, Zofran, Pepcid and GI cocktail and refer for gallbladder ultrasound. 1830 -- Labs and imaging reviewed. Normal white blood cell count. Potassium 3.2. Magnesium 1.5. Troponin negative. Lipase normal. Gallbladder ultrasound noted sludge but no evidence of acute cholecystitis. 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 A small amount of urine was obtained and sent for culture. Will hold on treatment for UTI at this time as she has no fever, elevated white blood cell count or complaint of urinary symptoms. Patient was able to drink fluids and eat crackers and tomato soup here. As her decreased appetite has been chronic and she does not appear to be acutely dehydrated, and she has had no acute findings on lab work and imaging, do not see an acute indication for admission. She likely would benefit from further evaluation into possible depression as the cause, also possible endoscopy for chronic nausea and decreased appetite. Case discussed with patient's daughter who felt that patient was possibly depressed. Case d/w Dr. Esparza and she agrees that pt is likely depressed since brought from [place] by her daughter and refusing to eat since then. She is planning on a psychological evaluation and will also look into possible endoscopy. Medical Records Medical records reviewed: Yes I reviewed the patient's medical records. Imaging Data Radiologic Study: Radiologist's impression: US Abdomen Limited, Right Upper Quadrant Exam date and time: 01/14/2020 4:51 PM Age: 74 years old Clinical indication: Other: Ruq pain; Patient HX: N/v/d TECHNIQUE: Imaging protocol: Real-time ultrasound of the abdomen with image documentation. Examination was focused on the right upper quadrant. COMPARISON: CT ABDOMEN PELVIS W 01/12/2020 10:25 AM FINDINGS: There is a large amount of echogenic sludge in the gallbladder. No shadowing gallstones. No gallbladder wall thickening or pericholecystic fluid.There was no sonographic Lozano's sign according to the director of transportation. The common bile duct is top limits of normal in diameter. No common duct stones are visualized. The liver is unremarkable. The pancreas is unremarkable as visualized. No hydronephrosis of the right kidney. The abdominal aorta is normal in caliber. IMPRESSION: Gallbladder sludge. No evidence of acute cholecystitis. Lab Data Lab results reviewed: Yes I reviewed the patient's lab results. Labs: 01/14/20 17:11 Urine - Cath Not Specified Urine Culture - Pending Laboratory Tests Range/Units 01/14/20 01/14/20 01/14/20 17:00 17:00 17:00 WBC (4.4-10.8) k/cumm 5.23 RBC (4.00-5.20) m/cumm 4.06 Hgb (12.0-15.5) g/dL 11.8 L Hct (36.0-46.0) % 36.5 MCV (80-95) fL 89.9 MCH (27.0-33.0) pg 29.1 MCHC (32.0-36.0) g/dL 32.3 RDW (11.7-14.6) % 15.4 H Plt Count (130-400) x1000/uL 330 MPV (8.0-11.0) fL 11.0 Immature Gran % % 0.8 Neutrophils % 73.2 Lymphocytes % 19.3 Monocytes % 6.3 Eosinophils % 0.2 Basophils % 0.2 Absolute Neutrophils (1.2-6.7) k/cumm 3.83 Absolute Lymphocytes (1.2-3.4) k/cumm 1.01 L Absolute Monocytes (0.11-0.7) k/cumm 0.33 Absolute Eosinophils (0.0-0.7) k/cumm 0.01 Absolute Basophils (0.0-0.2) k/cumm 0.01 Sodium (136-145) mmol/L 137 Potassium (3.5-5.1) mmol/L 3.2 L Chloride (98-107) mmol/L 99 Carbon Dioxide (21.0-32.0) mmol/L 27.6 Anion Gap (3-11) mmol/L 10.4 BUN (7-18) mg/dL 17 Creatinine (0.55-1.02) mg/dL 0.74 Estimated GFR/1.73 m2 (mL/min/1.73m2) >= 60.00 Glucose (74-106) mg/dL 119 H Calcium (8.5-10.1) mg/dL 9.2 Magnesium (1.8-2.4) mg/dL 1.5 L Total Bilirubin (0.2-1.0) mg/dL 0.6 AST (15-37) U/L 23 ALT (14-59) U/L 17 Alkaline Phosphatase (46-116) U/L 80 Troponin I (<0.06) ng/Ml < 0.05 Total Protein (6.4-8.2) g/dL 7.5 Albumin (3.4-5.0) g/dL 3.0 L Lipase (73-393) U/L 339 Urine Color Urine Clarity Urine pH Ur Specific [place] Urine Protein Urine Ketones Urine Blood Urine Nitrite Urine Bilirubin Urine Urobilinogen Ur Leukocyte Esterase Urine Glucose Range/Units 01/14/20 17:11 WBC (4.4-10.8) k/cumm RBC (4.00-5.20) m/cumm Hgb (12.0-15.5) g/dL Hct (36.0-46.0) % MCV (80-95) fL MCH (27.0-33.0) pg MCHC (32.0-36.0) g/dL RDW (11.7-14.6) % Plt Count (130-400) x1000/uL MPV (8.0-11.0) fL Immature Gran % % Neutrophils % Lymphocytes % Monocytes % Eosinophils % Basophils % Absolute Neutrophils (1.2-6.7) k/cumm Absolute Lymphocytes (1.2-3.4) k/cumm Absolute Monocytes (0.11-0.7) k/cumm Absolute Eosinophils (0.0-0.7) k/cumm Absolute Basophils (0.0-0.2) k/cumm Sodium (136-145) mmol/L Potassium (3.5-5.1) mmol/L Chloride (98-107) mmol/L Carbon Dioxide (21.0-32.0) mmol/L Anion Gap (3-11) mmol/L BUN (7-18) mg/dL Creatinine (0.55-1.02) mg/dL Estimated GFR/1.73 m2 (mL/min/1.73m2) Glucose (74-106) mg/dL Calcium (8.5-10.1) mg/dL Magnesium (1.8-2.4) mg/dL Total Bilirubin (0.2-1.0) mg/dL AST (15-37) U/L ALT (14-59) U/L Alkaline Phosphatase (46-116) U/L Troponin I (<0.06) ng/Ml Total Protein (6.4-8.2) g/dL Albumin (3.4-5.0) g/dL Lipase (73-393) U/L Urine Color Cancelled Urine Clarity Cancelled Urine pH Cancelled Ur Specific [place] Cancelled Urine Protein Cancelled Urine Ketones Cancelled Urine Blood Cancelled Urine Nitrite Cancelled Urine Bilirubin Cancelled Urine Urobilinogen Cancelled Ur Leukocyte Esterase Cancelled Urine Glucose Cancelled ECG Data Attestation: I personally reviewed and interpreted this ECG (s) as follows: Interpretation: rate of 90, sinus, no acute st elevation or depression. T wave inversion V2-V4. [place] 156. QTc 458. QRS 88. HPI General Mode of arrival: EMS. Date/Time Provider Initiated Documentation: 01/14/20 16:55. Limitations to Documentation: altered mental status. Information obtained by: patient and RN/MD. HPI Narrative: Patient is a 74-year-old female with a history of dementia, seizures, anxiety, hypertension who presents for vomiting, diarrhea and inability to take p.o. past several weeks. Patient was seen here a few days ago for the same complaint and found to have low potassium but symptoms improved and she was sent back to the [facility]. Dr. Esparza called from the [facility] stating that patient likely needs to be admitted as she is not taking any p.o. and likely needs IV fluids. She also stated that patient was noted to have a distended gallbladder on her CT scan from a few days ago and that she may need a gallbladder ultrasound. Patient has denied any abdominal pain on recent visit and today. Patient is able to state that her main complaint is the nausea. She vomited once here which was bile. She has had watery brown diarrhea. She denies any known fever, chest pain or shortness of breath. Related Data Home Medications Medication Instructions Recorded Confirmed famotidine 20 mg PO BID 10/23/19 01/14/20 lisinopril 40 mg PO DAILY 10/23/19 01/14/20 acetaminophen [Tylenol Arthritis 650 mg PO TID 01/12/20 01/14/20 Pain] albuterol sulfate [Ventolin HFA] 90 mcg INHALATION PRN PRN 01/12/20 01/14/20 duloxetine [Cymbalta] 30 mg PO BID 01/12/20 01/14/20 ferrous sulfate [iron] 325 mg PO BID 01/12/20 01/14/20 folic acid 1 mg PO DAILY 01/12/20 01/14/20 ibuprofen 200 mg PO Q6H PRN 01/12/20 01/14/20 mirtazapine 15 mg PO QHS 01/12/20 01/14/20 potassium chloride 20 meq PO DAILY #7 tab 01/12/20 01/14/20 valproate sodium 250 mg PO TID 01/12/20 01/14/20 Biofreeze (menthol) 1 applic TOPICAL QD-BID PRN 01/14/20 01/14/20 Health Shake 1 unit PO BID 01/14/20 Salonpas 1 patch TOPICAL DAILY 01/14/20 01/14/20 beclomethasone dipropionate 1 inh INHALATION DAILY 01/14/20 01/14/20 docusate sodium 100 mg PO BID 01/14/20 01/14/20 ondansetron 4 mg PO TID PRN #6 tab 01/14/20 ondansetron HCl [Zofran] 4 mg PO Q8H PRN 01/14/20 01/14/20 polyethylene glycol 3350 [Miralax] 17 g PO DAILY 01/14/20 01/14/20 senna 8.6 mg PO BID 01/14/20 01/14/20 Previous Rx's Medication Instructions Recorded potassium chloride 20 meq PO DAILY #7 tab 01/12/20 ondansetron 4 mg PO TID PRN #6 tab 01/14/20 Allergies Allergy/AdvReac Type Severity Reaction Status Date / Time propranolol [From Inderal LA] Allergy Unverified 11/01/19 14:16 General Stated Complaint: GenMedical HADLEY: 3 Review of Systems All systems reviewed & are unremarkable except as noted in HPI and below Constitutional Constitutional: Reports as per HPI, Denies chills and Denies fever(s) Eyes Eyes: Denies blurry vision ENT Ears, Nose, Mouth, and Throat: Denies dizziness, Denies sore throat and Denies throat swelling Cardiovascular Cardiovascular: Denies chest pain and Denies dyspnea Respiratory Respiratory: Denies cough and Denies dyspnea Gastrointestinal Gastrointestinal: Denies abdominal pain, Reports diarrhea and Reports vomiting Genitourinary Genitourinary: Denies hematuria and Denies dysuria Musculoskeletal Musculoskeletal: Denies back pain and Denies numbness Integumentary/Breasts Skin/Breast: Denies lesions and Denies rash Neurologic Neurologic: Denies dizziness, Denies localized weakness and Denies numbness Allergic/Immunologic Allergic/Immunologic: Denies throat swelling [facility] Medical History (Updated 01/14/20 @ 19:39 by Ivelisse Mendez DO) Aneurysm (Acute) Anxiety (Chronic) Cognitive communication deficit (Acute) COPD (chronic obstructive pulmonary disease) (Chronic) Hypertensive heart disease without heart failure (Acute) 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 (Acute) Seizure (Acute) Surgical History (Updated 01/02/20 @ 08:42 by Shelby Mares) H/O neck surgery (Acute) History of ankle surgery (Acute) Social History (System 11/01/19 @ 14:16 by Rizwana Marquez) Smoking/Tobacco Use Status: Former Tobacco Use Alcohol Intake: former Drug use: Never Additional Social history: pt has confusion and has just been moved via car from [place] Exam Const General: cooperative, healthy appearing and no acute distress Orientation: alert, awake and oriented to person [facility] Head: normal to inspection Face and sinus: normal facial exam Eyes General: appearance normal, both eyes and all related structures EOM: EOM intact bilaterally Neck Neck: normal visual inspection and No submandibular swelling Lymphatic: no lymphadenopathy noted Chest Chest: normal inspection of the chest and no tenderness Resp Effort & Inspection: normal respiratory effort and able to speak in complete sentences Auscultation: clear to auscultation bilaterally Cardio Rate: regular rate Rhythm: regular rhythm GI Inspection: normal to inspection Palpation: soft, not firm, not rigid and tender in the epigastrum, in the LUQ and in the RUQ Auscultation: hypoactive bowel sounds Skin General skin exam: no rashes or lesions noted Neuro General: patient alert, patient awake and patient oriented x3 Cognition: normal cognition Speech: speech normal Motor: muscle tone normal throughout Sensory Exam: no sensory deficits noted Extrem General: normal to inspection, full ROM, capillary refill normal, no calf tenderness bilaterally and no edema Psych Appearance: grossly normal Mental Status: mental status grossly normal Speech and Movement: speech and movement normal Affect: normal affect Course Vital Signs Vital signs: Vital Signs Temperature 97.9 F 01/14/20 15:59 Pulse 104 H 01/14/20 15:59 Respiratory Rate 18 01/14/20 15:59 Blood Pressure 171/88 H 01/14/20 15:59 Pulse Oximetry 95 01/14/20 15:59 Temperature 97.9 F 01/14/20 15:59 Temperature Source Temporal Artery Scan 01/14/20 15:59 Pulse 104 H 01/14/20 15:59 Respiratory Rate 18 01/14/20 15:59 Respiratory Effort Non-Labored 01/14/20 16:05 Blood Pressure 171/88 H 01/14/20 15:59 Blood Pressure Position Supine 01/14/20 15:59 Pulse Oximetry 95 01/14/20 15:59 Oxygen Delivery Method Room Air 01/14/20 15:59 Oxygen Flow Rate 0 01/14/20 15:59 Pain Level 0 01/14/20 15:59
[2020-01-14 17:07] LABS: Abs Immature Grans 0.04 k/cumm (0.0-0.09); Absolute Basophil Count 0.01 k/cumm (0.0-0.2); Absolute Eosinophil Count 0.01 k/cumm (0.0-0.7); Absolute Lymphocyte Count 1.01 k/cumm (1.2-3.4); Absolute Monocyte Count 0.33 k/cumm (0.11-0.7); Absolute Neutrophil Count 3.83 k/cumm (1.2-6.7); Basophils % 0.2; Eosinophils % 0.2; HCT 36.5 % (36.0-46.0); HGB 11.8 g/dL (12.0-15.5); Immature Grans % 0.8 %; Lymphocytes % 19.3; Mean Corp. HGB Concentration 32.3 g/dL (32.0-36.0); Mean Corpuscular Hemoglobin 29.1 pg (27.0-33.0); Mean Corpuscular Volume 89.9 fL (80-95); Monocytes % 6.3; Neutrophils % 73.2; Platelet Count 330 x1000/uL (130-400); RBC 4.06 m/cumm (4.00-5.20); RBC Distribution Width 15.4 % (11.7-14.6); White Blood Cell Count 5.23 k/cumm (4.4-10.8)
[2020-01-14 17:25] LABS: ALT 17 U/L (14-59); AST 23 U/L (15-37); Alkaline Phosphatase 80 U/L (46-116); Anion Gap 10.4 mmol/L (3-11); BUN 17 mg/dL (7-18); Bilirubin, Total 0.6 mg/dL (0.2-1.0); CO2 27.6 mmol/L (21.0-32.0); CREATININE 0.74 mg/dL (0.55-1.02); Calcium 9.2 mg/dL (8.5-10.1); Chloride 99 mmol/L (98-107); Glucose 119 mg/dL (74-106); Magnesium 1.5 mg/dL (1.8-2.4); Potassium 3.2 mmol/L (3.5-5.1); Sodium 137 mmol/L (136-145); Total Protein 7.5 g/dL (6.4-8.2)
[2020-01-14] MEDS: Normal Saline 500 ML IV (17:27)
[2020-01-14] MEDS: FAMOTIDINE 20 MG/50 ML BAG 200 MG IVPB (17:27)
[2020-01-14] MEDS: Ondansetron 4 MG/2 ML VIAL IVP (17:27)
[2020-01-14 17:28] LABS: Troponin I < 0.05 ng/Ml (<0.06)
[2020-01-14 17:37] LABS: Lipase 339 U/L (73-393)
--- NOTE | 2020-01-14 18:22 | DI.VRAD_ITS ---
PROCEDURE INFORMATION: Exam: US Abdomen Limited, Right Upper Quadrant Exam date and time: 01/14/2020 4:51 PM Age: 74 years old Clinical indication: Other: Ruq pain; Patient HX: N/v/d TECHNIQUE: Imaging protocol: Real-time ultrasound of the abdomen with image documentation. Examination was focused on the right upper quadrant. COMPARISON: CT ABDOMEN PELVIS W 01/12/2020 10:25 AM FINDINGS: There is a large amount of echogenic sludge in the gallbladder. No shadowing gallstones. No gallbladder wall thickening or pericholecystic fluid.There was no sonographic Lozano's sign according to the newsperson. The common bile duct is top limits of normal in diameter. No common duct stones are visualized. The liver is unremarkable. The pancreas is unremarkable as visualized. No hydronephrosis of the right kidney. The abdominal aorta is normal in caliber. IMPRESSION: Gallbladder sludge. No evidence of acute cholecystitis. Dictated and Authenticated by: Franco Ortez MD. Ordering:OH Oviedo MD
[2020-01-14] MEDS: MAGNESIUM SULFATE 1 GM/100 ML BAG IVPB (18:28)
[2020-01-14] MEDS: Prochlorperazine 10 MG/2 ML VIAL IVP (18:29)
[2020-01-14] MEDS: Potassium Chloride 20 MEQ TABCR 40 MEQ PO (18:29)
== END 2020-01-14 20:20 | disposition home or self-care (01) ==
PROVIDERS: Emergency Provider Physician Assistant; PCP Family Medicine
DX: R63.0 Anorexia (principal); R11.2 Nausea with vomiting, unspecified; E83.42 Hypomagnesemia; N36.8 Other specified disorders of urethra; I10 Essential (primary) hypertension; J44.9 Chronic obstructive pulmonary disease, unspecified; Z87.891 Personal history of nicotine dependence
CPT/HCPCS: 36415; 80053; 83690; 93005; 96361; 96365; 96367; 96375; 99285; 76705; 81003; 83735; 84484; 85025; 87086; 93010; J0780; J2405; J3475

== ENCOUNTER → 2020-01-22 11:05 | Outpatient (BNVA) | payer MEDICARE, MEDICAID, SELFPAY | PROVIDERS: PCP Family Medicine; Referring Provider Family Medicine; Visit Provider Psychiatry & Neurology Neurology | DX: I60.4 Nontraumatic subarachnoid hemorrhage from basilar artery (principal); R63.0 Anorexia; R41.3 Other amnesia; R68.89 Other general symptoms and signs; R53.1 Weakness; E11.9 Type 2 diabetes mellitus without complications; J44.9 Chronic obstructive pulmonary disease, unspecified; I10 Essential (primary) hypertension | CPT/HCPCS: 99204; 99215 ==

== ENCOUNTER 2020-01-23 16:03 | Outpatient (REF) | payer MEDICARE, MEDICAID, SELFPAY ==
[2020-01-23 16:48] LABS: Potassium 2.8 mmol/L (3.5-5.1)
== END 2020-01-23 16:23 ==
LOC: LBN 16:03
PROVIDERS: PCP Family Medicine; Visit Provider Family Medicine
DX: E87.8 Other disorders of electrolyte and fluid balance, not elsewhere classified (principal); E87.6 Hypokalemia
CPT/HCPCS: 84132

== ENCOUNTER 2020-01-24 09:44 | Outpatient (REF) | payer MEDICARE, MEDICAID, SELFPAY ==
[2020-01-24 10:35] LABS: Anion Gap 10.8 mmol/L (3-11); BUN 16 mg/dL (7-18); CO2 21.2 mmol/L (21.0-32.0); CREATININE 0.68 mg/dL (0.55-1.02); Calcium 9.2 mg/dL (8.5-10.1); Chloride 105 mmol/L (98-107); Glucose 121 mg/dL (74-106); Sodium 137 mmol/L (136-145)
[2020-01-24 10:42] LABS: Potassium 5.3 mmol/L (3.5-5.1)
[2020-01-24 15:34] LABS: Potassium 4.3 mmol/L (3.5-5.1)
== END 2020-01-24 10:04 ==
LOC: LBN 09:44
PROVIDERS: PCP Family Medicine; Visit Provider Family Medicine
DX: E87.8 Other disorders of electrolyte and fluid balance, not elsewhere classified (principal); E11.9 Type 2 diabetes mellitus without complications; I10 Essential (primary) hypertension
CPT/HCPCS: 80048; 84132

== ENCOUNTER 2020-01-25 12:56 | Emergency (ER) | payer MEDICARE, MEDICAID, SELFPAY ==
[2020-01-25 12:59] VITALS: BP 157/72; PULSE 84; RESP 22; TEMP 36.2; O2SAT 98
--- NOTE | 2020-01-25 12:59 | ED.GENADUL_ITS ---
Discharge Plan Disposition Patient Disposition: SNF (LEVEL 1) [facility] Condition: Stable Discharge Details Chief Complaint: GenMedical Clinical Impression: Cognitive communication deficit, Anorexia, Abulia, Generalized weakness Primary Care Provider: Leonela Waddell ED Provider: Ronak Fisher Home Meds and New Rx's Prescriptions: Continued Qvar RediHaler 80 mcg/actuation HFA aerosol breath activated 1 inh IH DAILY RF: 0 lorazepam 0.5 mg tablet 0.25 mg PO BID PRNRF: 0 omeprazole 40 mg capsule,delayed release(DR/EC) 40 mg PO DAILY RF: 0 acetaminophen [Tylenol] 325 mg tablet 650 mg PO Q6H PRNRF: 0 prochlorperazine maleate 5 mg tablet 5 mg PO QID PRNRF: 0 folic acid 1 mg Tablet 1 mg PO DAILY RF: 0 albuterol sulfate [Ventolin HFA] 90 mcg/actuation Hfa Aerosol Inhaler 90 mcg INHALATION PRN PRNRF: 0 docusate sodium 100 mg Capsule 100 mg PO BID RF: 0 senna 8.6 mg Capsule 8.6 mg PO BID RF: 0 Health Shake 1 unit PO BID RF: 0 polyethylene glycol 3350 [Miralax] 17 gram Powder In Packet 17 g PO DAILY RF: 0 potassium chloride 10 mEq Tablet Extended Release 10 meq PO BID RF: 0 magnesium oxide 400 mg magnesium Tablet 400 mg PO BID RF: 0 lidocaine [Salonpas (lidocaine)] 4 % Adhesive Patch,Medicated 1 patch TOPICAL DAILY RF: 0 Biofreeze (menthol) 4 % Gel 1 applic TOPICAL BID RF: 0 Discharge Instructions Additional Instructions: Please continue to encourage frequent sips of fluids. You underwent CAT scan of the head, blood work and were given IV fluids. There is no evidence of acute emergent pathology at this time. We did discuss palliative care referral, and referral has been sent. Seek care urgently once again with new or worsening symptoms. You were seen in consultation by Dr. Abad on January 21 and she made some recommendations for possible medication changes. Referrals: Leonela Waddell [Primary Care Provider] - Discharge Data Discharge Date/Time-TO BE ENTERED AT DEPARTURE: 01/25/20 20:20 Medical Decision Making <MOHAN Xavier - Last Filed: 01/26/20 17:18> Patient is 74-year-old female with history of hypokalemia, anorexia, h ypertension, cognitive communication deficit, COPD, nontraumatic subarachnoid hemorrhage, basilar artery seizure, anxiety, type 2 diabetes. She is brought in today with chief complaint of decreased p.o. intake over the past several weeks. This is patient's third time being seen here for similar complaint which sounds to be mainly anorexia and failing at the [facility]. Patient had a subarachnoid hem orrhage last year and since then has been confused and needing to live in assisted living facility. She is recently been diagnosed with hypomagnesemia and hypokalemia both of which is been managed. Yesterday, her potassium was within normal limits. The [facility] also reports that she has had elevated blood glucose. They are concerned for depression as well. On exam, patient is moving all 4 extremities. She is nonverbal. This is a change from when I saw her a few weeks ago. At that time, patient had been ANO x1 but verbal. She does reportedly speak to nursing staff some but I have yet to hear her speak. She will follow commands, is able to move all 4 extremities purposefully with direction. I see no evidence of neurologic deficit otherwise. She has no evidence of trauma. She does appear dehydrated. At this time, unclear what is causing her decline. As she has had an abrupt change in her speech pattern, will obtain repeat head CT as well as laboratory evaluation. Daughter, Brenda, came to the department. She is the one that brought the patient from [place]. She reports that the patient's wishes was to be home in 1 month. She had hoped that she would be able to care for the patient at her home but has had difficulty setting up her house to be able to cope with a fairly bedbound individual. She has been working in getting choices for care. She reports that her mother has expressed wishes to not be intubated historically. We discussed the notes from neurology, primary care and interventions are been completed thus far. Chart review reveals that the [place] been trying a multitude of different options including appetite stimulants, antidepressants without much success. Daughter is concerned that depression may be a large part of this particularly as her mother is not been able to have visitors in the time of COVID-19. Daughter is at bedside. CT reviewed by radiologist: FINDINGS: Metallic artifact in the region of the tip of the basilar artery most likely related to prior embolization. Encephalomalacia in the right and to a lesser extent the left occipital lobes suggesting a prior area of ischemia. Chronic white matter changes of probable small vessel disease. No evidence of hemorrhage. No mass effect. No acute intracranial abnormality. IMPRESSION: No evidence of acute intracranial process. Labs reviewed. Patient is mildly anemic with a hemoglobin of 11.8. Her potassium is 4.4. Anion gap is elevated at 14. BUN 19. Creatinine GFR normal. TSH is elevated at 9.19. Free T4 is normal at 1.08. Unable to obtain UA. As noted on previous exam, patient does have prolapse. Patient's daughter reports that she was supposed to have surgery for repair of the prolapse prior to her aneurysm rupture. Discussed findings with patient and family. Not identifying any acute abnormality at this time. 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 There also may be a component of depression to this as well. She did respond to having her daughter at bedside. I did contact the patient's primary care provider and we discussed the findings thus far today. I had a lengthy conversation with daughter and there is a plan for discussion of goals of care. The goal for the family and the patient would be for her to be able to stay with family locally. A referral for palliative care will be placed. We did discuss the patient may also qualify for hospice. Daughter would like to discuss this further with her sister as well as the primary care provider. They were given return precautions. Patient is receiving hydration and she did appear dehydrated on exam. At the end of my shift, disposition was made the patient was still receiving hydration. Dr. Fisher resuming care until the end of hydration and return back to [facility]. <Ronak Fisher MD - Last Filed: 01/25/20 17:41> Patient seen, examined and discussed with Ms Irwin. I agree with her assessment and plan. PT received parenteral hydration, underwent laboratory workup and CT images. Please see Ms. Marlow note regarding details. HPI <MOHAN Xavier - Last Filed: 01/26/20 17:18> General Mode of arrival: EMS . Date/Time Provider Initiated Documentation: 01/25/20 12:59 . Limitations to Documentation: altered mental status (confusion at baseline since brain aneurysm, nonverbal x 2 weeks) . Information obtained by: family, RN/ (contacted by [employer] WORKER from [facility]), EMS and RN notes reviewed . HPI Narrative: Patient is a 74 year old female with hx of memory loss, abulia, hypokalemia, anorexia, COPD. 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 Patient is brought here by her daughter few months ago and since that time is been residing at the [facility]. She has progressively declined since the subarachnoid hemorrhage in recent weeks has been nonverbal. She has been seen here 2 other times recently with concern for her not having good p.o. intake. She was previously diagnosed with hypokalemia and hypomagnesemia. Potassium was checked yesterday and found to be normal. However, as the patient has persistently declined, they sent her back for another evaluation and are concerned for potential recurrence of her hypokalemia. Patient was recently seen by neurology for further evaluation of this. The primary care nurse practitioner is concerned that the patient is also been having difficulty swallowing. Thus far, medication attempts have been made to improve the patient's appetite and mood. They were concerned for depression being the source of her anorexia. Patient has tried mirtazapine, Depakote, Cymbalta without benefit. Patient has 2 daughters locally that have both been helping. Daughter Deepika has been applying for guardianship and her daughter Brenda has been offering her home. Plan had been for the patient to reside with her daughter Brenda when she moved to the area but secondary to her increasing medical needs has not been successful at having this occur thus far. Patient had expressed to Dr. Esparza at the [facility] wished to be DNR/DNI. Related Data Home Medications Medication Instructions Recorded Confirmed albuterol sulfate [Ventolin HFA] 90 mcg INHALATION PRN PRN 01/12/20 01/25/20 folic acid 1 mg PO DAILY 01/12/20 01/25/20 Health Shake 1 unit PO BID 01/14/20 01/25/20 docusate sodium 100 mg PO BID 01/14/20 01/25/20 senna 8.6 mg PO BID 01/14/20 01/25/20 acetaminophen 325 mg tablet 650 mg PO Q6H PRN tab 01/22/20 01/25/20 beclomethasone dipropionate 80 1 inh IH DAILY gm 01/22/20 01/25/20 mcg/actuation HFA breath activated aerosol lorazepam 0.5 mg tablet 0.25 mg PO BID PRN tab 01/22/20 01/25/20 omeprazole 40 mg capsule,delayed 40 mg PO DAILY 01/22/20 01/25/20 release prochlorperazine maleate 5 mg 5 mg PO QID PRN 01/22/20 01/25/20 tablet Biofreeze (menthol) 1 applic TOPICAL BID 01/25/20 01/25/20 lidocaine [Salonpas (lidocaine)] 1 patch TOPICAL DAILY 01/25/20 01/25/20 magnesium oxide 400 mg PO BID 01/25/20 01/25/20 polyethylene glycol 3350 [Miralax] 17 g PO DAILY 01/25/20 01/25/20 potassium chloride 10 meq PO BID 01/25/20 01/25/20 Allergies Allergy/AdvReac Type Severity Reaction Status Date / Time propranolol [From Inderal LA] Allergy Unverified 01/25/20 14:57 General HADLEY: 3 Review of Systems <MOHAN Xavier - Last Filed: 01/26/20 17:18> Unobtainable due to mental condition PFSH <MOHAN Xavier - Last Filed: 01/26/20 17:18> Social History Smoking/Tobacco Use Status: Former Tobacco Use Alcohol Intake: former Drug use: Never Substance use type: does not use Housing: [facility] Number of Children: 3 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; 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 What is your relationship status?: Panel score (0-1 are the most socially isolated patients): 0 Exam <MOHAN Xavier - Last Filed: 01/26/20 17:18> Const General: comfortable, no acute distress and well developed Nutritional Appearance: average body habitus and well nourished Orientation: alert, awake and confused (nonverbal) Limitations: altered mental status and behavioral limitations HENMT Head: normal to inspection Ears: hearing grossly normal bilaterally Mouth: mucous membranes dry (looks dry) Throat: posterior oropharynx normal Eyes General: appearance normal, both eyes and all related structures Alignment and Position: alignment normal and position normal Periorbital: periorbital findings normal Eyelids: eyelids normal Pupils: PERRL Neck Neck: normal visual inspection, full ROM, no lymphadenopathy, no meningeal signs, trachea midline and supple Chest Chest: normal inspection of the chest, normal palpation of entire chest wall and no crepitus Resp Effort & Inspection: normal respiratory effort, able to speak in complete sentences and no respiratory distress Auscultation: clear to auscultation bilaterally, no rales, no rhonchi and no wheezes Cardio Rate: regular rate Rhythm: regular rhythm Heart Sounds: S1 normal and S2 normal GI Inspection: normal to inspection, no edema and non-distended Palpation: soft, no hepatosplenomegaly, not firm, no guarding, not rigid and nontender Auscultation: normal bowel sounds Back/Spine/Pelvis Back: no CVA tenderness Thoracic/Lumbar Spine: thoracic and lumbar spine normal to inspection Skin General skin exam: no rashes or lesions noted Trauma: no lacerations or abrasions Neuro General: patient alert and patient awake Cranial Nerves: CN's II-XI intact bilaterally Motor: muscle tone normal throughout (moving all extremities) Extrem General: normal to inspection, capillary refill normal, no pedal edema, no calf tenderness and normal gait Psych Appearance: grossly normal and well kempt Mental Status: mental status grossly normal Speech and Movement: mute Sign Out <MOHAN Xavier - Last Filed: 01/26/20 17:18> Sign Out Data: Sign Out Comment: Care transition to Dr. Fisher. I have spoken with family, primary care provider. Referral for palliative care is in place. Patient is currently receiving IV hydration. Last updated by Candida Irwin PA at 01/25/20 16:42
[2020-01-25 14:54] LABS: ALT 15 U/L (14-59); AST 20 U/L (15-37); Albumin 2.9 g/dL (3.4-5.0); Alkaline Phosphatase 88 U/L (46-116); Anion Gap 14.4 mmol/L (3-11); BUN 19 mg/dL (7-18); Bilirubin, Total 0.5 mg/dL (0.2-1.0); CO2 20.6 mmol/L (21.0-32.0); CREATININE 0.84 mg/dL (0.55-1.02); Calcium 9.6 mg/dL (8.5-10.1); Chloride 108 mmol/L (98-107); Glucose 122 mg/dL (74-106); Magnesium 1.9 mg/dL (1.8-2.4); Potassium 4.4 mmol/L (3.5-5.1); Sodium 143 mmol/L (136-145); Total Protein 7.2 g/dL (6.4-8.2)
[2020-01-25 15:07] LABS: Abs Immature Grans 0.06 k/cumm (0.0-0.09); Absolute Basophil Count 0.02 k/cumm (0.0-0.2); Absolute Eosinophil Count 0.05 k/cumm (0.0-0.7); Absolute Lymphocyte Count 2.24 k/cumm (1.2-3.4); Absolute Monocyte Count 0.71 k/cumm (0.11-0.7); Absolute Neutrophil Count 4.16 k/cumm (1.2-6.7); Basophils % 0.3; Eosinophils % 0.7; HCT 36.1 % (36.0-46.0); HGB 11.8 g/dL (12.0-15.5); Immature Grans % 0.8 %; Lymphocytes % 30.9; Mean Corp. HGB Concentration 32.7 g/dL (32.0-36.0); Mean Corpuscular Hemoglobin 28.9 pg (27.0-33.0); Mean Corpuscular Volume 88.5 fL (80-95); Mean Platelet Volume 10.3 fL (8.0-11.0); Monocytes % 9.8; Neutrophils % 57.5; Platelet Count 413 x1000/uL (130-400); RBC 4.08 m/cumm (4.00-5.20); RBC Distribution Width 16.6 % (11.7-14.6); White Blood Cell Count 7.24 k/cumm (4.4-10.8)
[2020-01-25 15:17] LABS: TSH (W/Ref FT4) 9.19 uIU/mL (0.36-3.74)
--- NOTE | 2020-01-25 15:32 | DI.CT_ITS ---
EXAM: CT HEAD WO CLINICAL HISTORY: AMS. TECHNIQUE: Imaging Protocol: Axial computed tomography images with coronal and sagittal reformatted images were created and reviewed COMPARISON: No exams were available for comparison FINDINGS: Ventricles and Extra axial spaces: Normal in size and morphology for the patient's age. Hemorrhage: None. Cerebral parenchyma: There are areas of decreased attenuation in the white matter consistent with sma ll vessel ischemic disease. 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 There are areas of d ecreased attenuation in the white matter in both occipital lobes, right greater than left, which may represent prior infarcts. No acute territorial infarct is seen. There is metallic artifact seen in the region of the basilar artery which may represent prior embolization. Midline shift: None. Brainstem/Cerebellum: Normal. Calvarium: Normal. Visualized Paranasal sinuses/Mastoids: Clear. Soft Tissues: Unremarkable. IMPRESSION: No acute intracranial process. RADIATION DOSE DELIVERED: 660.73mGy.cm Total DLP DATA REPOSITORY: All CT scans at this facility are submitted to the National Radiology Data Registry (NRDR) Dose Index Registry (DIR) with the [employer] ([employer]). RADIATION OPTIMIZATION: All CT scans at this facility use at least one of these dose optimization te chniques: automated exposure control; mA and/or kV adjustment per patient size (includes targeted exa ms where dose is matched to clinical indication); or iterative reconstruction.
[2020-01-25 15:33] LABS: FREE T4 1.08 ng/dL (0.76-1.46)
--- NOTE | 2020-01-25 15:39 | DI.VRAD_ITS ---
PROCEDURE INFORMATION: Exam: CT Head Without Contrast Exam date and time: 01/25/2020 3:25 PM Age: 74 years old Clinical indication: Other: AMS TECHNIQUE: Imaging protocol: Computed tomography of the head without contrast. Radiation optimization: All CT scans at this facility use at least one of these dose optimization techniques: automated exposure control; mA and/or kV adjustment per patient size (includes targeted exams where dose is matched to clinical indication); or iterative reconstruction. COMPARISON: No relevant prior studies available. FINDINGS: Metallic artifact in the region of the tip of the basilar artery most likely related to prior embolization. Encephalomalacia in the right and to a lesser extent the left occipital lobes suggesting a prior area of ischemia. Chronic white matter changes of probable small vessel disease. No evidence of hemorrhage. No mass effect. No acute intracranial abnormality. IMPRESSION: No evidence of acute intracranial process. Dictated and Authenticated by: Blaise Butler MD. Ordering:ELYSIA Tirado MD
[2020-01-25] MEDS: Normal Saline Flush 10 ML SYR IVP (16:09)
[2020-01-25] MEDS: Normal Saline 1,000 ML 150 ML IV (16:09)
[2020-01-26 07:06] LABS: Hemoglobin A1C 6.1 % (3.8-5.6)
== END 2020-01-25 20:20 | disposition skilled nursing facility (03) ==
PROVIDERS: Physician Assistant; Emergency Provider Emergency Medicine; PCP Family Medicine
DX: R63.0 Anorexia (principal); R53.1 Weakness; R41.841 Cognitive communication deficit; F32.9 Major depressive disorder, single episode, unspecified; E86.0 Dehydration; I10 Essential (primary) hypertension; J44.9 Chronic obstructive pulmonary disease, unspecified; E11.9 Type 2 diabetes mellitus without complications
CPT/HCPCS: 36415; 36416; 80053; 82962; 93005; 96360; 96361; 99285; 70450; 81003; 83036; 83735; 84439; 84443; 84484; 85025; 93010; 99284